=== PATIENT | female | born 1990 | race Two or more races ===

== ENCOUNTER 2024-07-25 03:35 | Inpatient (IN) | payer MEDICAID, SELFPAY ==
[2024-07-25 21:20] VITALS: BP 120/87; PULSE 88; RESP 16; RESP 99; TEMP 36.8
[2024-07-25 21:24] VITALS: BMI 27.4
[2024-07-25 21:25] VITALS: TEMP 36.8
[2024-07-25 22:02] LABS: ROM Kit Lot # 57809118; ROM Swab Mixed By: CARMP2; Rupture of Fetal Membranes Positive (Negative); Swb Mxed in Solvent 1 min? Yes
--- NOTE | 2024-07-25 22:10 | ESHP_ITS ---
Documentation for date of: 07/25/24 OB Labor/Induct. HPI History of Present Illness History of present illness: 34 yo at 36+0 by stated MALATHI consistent with 13 wk US (presents with reports) who presents with LOF and contractions. complicated by 1) History of LTCS, no complications 2) History of abdominoplasty 3) Late transfer of care in [place] (but received full PNC) Patient states she has been feeling leaking of fluid and contractions. No VB, normal movement. She was scheduled to transfer her PNC but has not had her first visit. She presents with records from [place], notable a first trimester US and also a 2TM anatomy US. Per patient's report, no anomalies or concerns. OB HX: SAB x1 CS x1 at term LTCS [employer] hx: hx of HSC polypectomy Med HX: n/a Meds: PNV Surgical Hx: Cs, abdominoplasty Allergies: NKDA Social history: partner in [place] with her. History of Present Adequate Care: Yes Labs Narrative: Patient reports Rh positive All PNL will be drawn stat on admission Review of Systems Review of Systems Narrative Review of Systems: Negative ROS except noted above Past Medical History Surgical History OTHER SURGICAL HX: HSC polypectomy, LTCS, abdominoplasty Meds Home Medications and Allergies Home Medications ?Medication ?Instructions ?Recorded ?Confirmed ?Type No Known Home Medications 07/25/24 07/25/24 History Allergies Allergy/AdvReac Type Severity Reaction Status Date / Time No Known Allergies Allergy Verified 07/25/24 21:24 OB Exam Physical Exam Vital signs: Temp Pulse Resp BP 98.2 F 88 16 120/87 H 07/25/24 21:25 07/25/24 21:20 07/25/24 21:20 07/25/24 21:20 Narrative: GEN: NAD RESP: normal work of breathing ABD: Gravid, non tender EXT: no unilateral swelling SVE: 1-2cm (changing with exam), 100% effaced, bag with parts (not cephalic) Amnisure: positive BSUS: Footling/complete breech with cord seen at the level of the lower extremities, normal DVP FHT: Reactive, no decels [place]: Irregular OB Assessment & Plan Assessment and Plan (1) labor in third trimester: Status: Acute (2) premature rupture of membranes: Status: Acute (3) History of section: Status: Acute (4) History of abdominoplasty: Status: Acute Additional Plan Additional Plan Comment: 34 yo at 36+0 who presented with PPROM and labor with history of LTCS, breech presentation. Discussed with patient plan for urgent RLTCS in the setting of breech, PPROM and PTL. She is actively in labor with changing of her cervix. I am also concerned for risk of cord prolapse given the footling presentation and ruptured of membranes and labor. Given the progression PTL, I did not offer her late ALPS steroids. - Plan for RLTCS, consents signed, consented for blood transfusion as needed. Anesthesia and L&D nursing staff made aware. - All labs were obtained including hep B and HIV - Abx for GBS unknown and status - Patient understands and amenable to the plan, all questions answered Venecia Parsons MD (1) labor in third trimester Qualifiers: labor delivery status: without delivery Qualified Code(s): O60.03 - labor without delivery, third trimester (2) premature rupture of membranes Qualifiers: PROM onset of labor timing: onset of labor within 24 hours of rupture Qualified Code(s): O42.019 - premature rupture of membranes, onset of labor within 24 hours of rupture, unspecified trimester
--- NOTE | 2024-07-25 22:26 | PC.NURSE ---
2215- called dr. vizcaino regarding patient gestation 36 weeks, rupture, breech. schedule for 2299. Asked md if he wanted to be present for delivery, md states no. take to NICU as observation, urine drug tox, ro score, and check blood sugar at 30 min, 1 hr, 2 hr, 4 hr, 6 hr. Call md for any concerns.
[2024-07-25 23:02] VITALS: BMI 27.4
[2024-07-25 23:02] LABS: Basophils % (Auto) 0 % (0-2.5); Eosinophils # (Auto) 0.1 Thou/mm3 (0.0-0.5); Eosinophils % (Auto) 1 % (0-10); Hematocrit 32.9 % (36.0-46.0); Hemoglobin 11.2 g/dL (12.0-16.0); Immature Granulocytes % (Auto) 1 % (0-0); Immature Granulocytes Auto 0.06 Thou/mm3 (0.00-0.00); Lymphocytes # (Auto) 1.9 Thou/mm3 (1.0-4.8); Lymphocytes % (Auto) 21 % (10-50); Mean Corpuscular Hemoglobin 27.2 pg (25.0-35.0); Mean Corpuscular Volume 80 fL (80-100); Monocytes # (Auto) 0.6 Thou/mm3 (0.0-0.8); Monocytes % (Auto) 7 % (0-12); Neutrophils # (Auto) 6.5 Thou/mm3 (1.8-7.7); Neutrophils % (Auto) 71 % (37-80); Nucleated Red Blood Cell % 0 /100 WBC (0); Platelet Count 192 Thou/mm3 (140-440); RDW Standard Deviation 38.5 fL (36.4-46.3); Red Blood Count 4.12 Miln/mm3 (4.00-5.20); White Blood Count 9.3 Thou/mm3 (3.6-11.0)
[2024-07-25] MEDS: ceFAZolin/D5W 2 GM IV 2 GM/100 ML BAG IV (23:10)
[2024-07-25] MEDS: AZITHROMYCIN INJ 500 MG in SODIUM CHLORIDE 0.9% 250 ML 250 ML 250 MG IV (23:28)
[2024-07-25] MEDS: FAMOTIDINE INJ 10 MG/ML VIAL 2 ML 20 MG IV (23:37)
[2024-07-25 23:51] LABS: INR 0.9 (0.9-1.3); Partial Thromboplastin Time 27.9 Seconds (22.0-36.0)
[2024-07-25 23:52] LABS: Fibrinogen 620 mg/dL (175-375)
[2024-07-26] VITALS (16 sets, daily range): BP systolic 90–116; BP diastolic 50–76; PULSE 73–113; RESP 15–18; TEMP 36.1–36.8; O2SAT 96–100
[2024-07-26 00:19] LABS: Alanine Aminotransferase 12 U/L (10-49); Albumin, Serum 4.2 gm/dL (3.5-5.0); Albumin/Globulin Ratio 1.8 (1.2-2.2); Alkaline Phosphatase 114 U/L (46-116); Anion Gap 11 (7-16); Aspartate Amino Transferase 19 U/L (0-34); BUN/Creatinine Ratio 11 Ratio (12-20); Bilirubin,Total 0.8 mg/dL (0.3-1.2); Blood Urea Nitrogen 8 mg/dL (9-23); Calcium 9.1 mg/dL (8.3-10.6); Calcium (Corrected) 9.1 mg/dL (8.5-10.1); Carbon Dioxide 21.9 mMol/L (20.0-31.0); Chloride 106 mMol/L (98-107); Creatinine (Component) 0.7 mg/dL (0.6-1.3); Estimated Creatinine Clearance 104.3 mL/min (>60); Globulin 2.4 gm/dL (2.3-3.5); Glucose 75 mg/dL (74-106); Osmolality,Calculated 274 (275-295); Potassium 3.6 mMol/L (3.4-5.1); Sodium 139 mMol/L (136-145); Total Protein 6.6 gm/dL (5.7-8.2); eGFR > 60 See Note
[2024-07-26 00:29] LABS: Uric Acid 6.1 mg/dL (3.1-7.8)
--- NOTE | 2024-07-26 00:55 | ESOP_ITS ---
Operative Note - ADULT MANAGER Procedure Date of procedure: 07/26/24 Procedure Performed: Repeat lower transverse section Indication: premature rupture of membranes labor Breech presentation History of section History of abdominoplasty Pre-Op diagnosis: premature rupture of membranes labor Breech presentation History of section History of abdominoplasty Post-Op diagnosis: Same Anesthesia type: Spinal Procedure description: After obtaining informed consent, the patient was taken to the operating room. There was reassuring heart rate tracing prior. Spinal anesthesia was administered. A bowers catheter was placed and bilateral sequential compression devices were placed. She was then prepped and draped in the normal sterile fashion in the dorsal supine position with left lateral tilt. A timeout was performed to confirm patient name, date of , procedure and indication. The team was in agreement. Spinal anesthesia was found to be adequate using an Allis clamp. Anceph 2g IV x1 and azithromycin 500mg x1 were given for prophylaxis. A Pfannenstiel skin incision was then made with the scalpel and carried through to the underlying layer of fascia with cautery. The fascia was incised in the midine and the incision was extended laterally with the Burns scissors. The superior and inferior aspects of the fascial incision were then grasped with the Pato clamps, elevated and the underlying rectus muscles were dissected off bluntly and sharply. The peritoneum was entered digitally and the rectus muscles were then in the midline. The peritoneal incision was then extended superiorly and inferiorly with good visualization of the bladder. A uterine window was noted measuring approximately 5cm across. The lower uterine segment was scored in a transverse fashion with the scalpel. The uterus was then entered bluntly and the incision was extended with traction with clear amniotic fluid noted. The 's lower extremities were identified and the infant was delivered using normal breech maneuvers. The nose and mouth were suctioned with bulb suction and cord was clamped x2 and cut. The infant was handed off to the awaiting nursing team. . The placenta was then removed with uterine massage and cord traction. The uterus was exteriorized and cleared of all clot and debris. The uterine incision was repaired with 0-vicryl suture in a running locking fashion. Several figure of eight sutures were placed for hemostasis.The uterine incision was inspected and hemostasis was noted. The uterus was returned to the abdomen. A small 1x2cm serosal tear was noted on the bladder and was repaired with 4-0 monocyrl in a running unlocked fashion. The urine remained clear throughout the procedure. The gutters were cleared of all clot. The rectus muscles were inspected and noted to be hemostatic. The fascia was reapproximated with 0-Vicryl suture in a running fashion. The subcutaneous tissue was then irrigated. Stefano's fascia was reapproximated using 3-0 plaingut suture in a running fashion. The skin was closed using 4-0 monocryl suture in running subcuticular fashion. The incision was cleaned with a wet lap and dried with a dry lap. Bandage was applied over the incision. The vagina was cleared of all blood clots without active bleeding noted. Fundus was firm at the umbilicus. Sponge, lap and needle counts were correct x2. The procedure was without complications and the patient tolerated the procedure well. She was taken to recover further on Labor and Delivery, in stable condition. The procedure was greatly assisted (retraction and assistance with delivery of the baby as well as skin suturing) by the TESHA Flowers. Specimen: other Estimated blood loss (ml): 700 Findings: Footling breech with apgars 8/9, weight 2685g. Uterus, fallopian tubes and ovaries overall normal in appearance. Urine clear yellow at end of procedure. Complications: none Surgical staff Operation Date: 07/25/24 23:15 <No data on this case meets the specified criteria> Diagnosis Discharge Diagnosis (1) History of abdominoplasty: Status: Acute (2) History of section: Status: Acute (3) premature rupture of membranes: Status: Acute (4) labor in third trimester: Status: Acute Problem List Completed Was Problem List Reviewed/Reconciled?: Yes (3) premature rupture of membranes Qualifiers: PROM onset of labor timing: onset of labor within 24 hours of rupture Qualified Code(s): O42.019 - premature rupture of membranes, onset of labor within 24 hours of rupture, unspecified trimester (4) labor in third trimester Qualifiers: labor delivery status: without delivery Qualified Code(s): O60.03 - labor without delivery, third trimester
[2024-07-26 01:00] LABS: Syphilis Nonreactive (Nonreactive)
--- NOTE | 2024-07-26 01:05 | PD.LDDELS ---
Data (Tao) Data Hx Section: Yes
[2024-07-26] MEDS: OXYTOCIN in NS 20 units 20 UNIT/1,000 ML BAG 125 UNIT IV ×2 (03:00→09:17)
[2024-07-26 03:06] LABS: HIV (1&2) Antibody Rapid Non-Reactive
[2024-07-26 04:57] LABS: Amphetamine/Metham Scrn,Ur OB Negative (Negative); Benzoylecgonine Screen, Ur OB Negative (Negative); Opiate Screen,Urine OB Negative (Negative); THC Screen,Urine OB Negative (Negative)
--- NOTE | 2024-07-26 09:14 | PD.LDPPPRG ---
Subjective Subjective Interval history: POD0 from urgent RLTCS at 36+0 for PPROM, PTL, breech presentation. Patient doing well no issues this AM. Baby at beside. Pain well controlled, bleeding within normal limits. bowers in place has not passed gas Exam Vital Signs Temp Pulse Resp BP Pulse Ox O2 Del Method 97.0 F 113 H 18 102/63 97 Room Air 07/26/24 08:33 07/26/24 08:33 07/26/24 08:33 07/26/24 08:33 07/26/24 08:33 07/26/24 08:33 Narrative Exam General: NAD RESP: normal work of breathing Abdomen: soft, gravid, non-tender, no rebound or guarding, bandage in place Extremities: no pain with palpation of calves and no unilateral swelling Objective Labs 07/25/24 22:39 07/25/24 22:39 Labs: Laboratory Results - last 24 hr 07/25/24 07/25/24 07/26/24 21:40 22:39 04:15 WBC 9.3 RBC 4.12 Hgb 11.2 L Hct 32.9 L MCV 80 MCH 27.2 MCHC 34.0 RDW Std Deviation 38.5 Plt Count 192 Neut % (Auto) 71 Lymph % (Auto) 21 [place] % (Auto) 7 Eos % (Auto) 1 Baso % (Auto) 0 Neut # (Auto) 6.5 Lymph # (Auto) 1.9 [place] # (Auto) 0.6 Eos # (Auto) 0.1 Baso # (Auto) 0.0 Immature Gran # (Auto) 0.06 H Absolute Nucleated RBC 0.00 Immature Gran % 1 H Nucleated RBC % 0 PT 10.0 INR 0.9 APTT 27.9 Fibrinogen 620 H* Sodium 139 Potassium 3.6 Chloride 106 Carbon Dioxide 21.9 Anion Gap 11 BUN 8 L Creatinine 0.7 Estim Creat Clear Calc 104.3 eGFR > 60 BUN/Creatinine Ratio 11 L Glucose 75 Calculated Osmolality 274 L Uric Acid 6.1 Calcium 9.1 Corrected Calcium 9.1 Total Bilirubin 0.8 AST 19 ALT 12 Alkaline Phosphatase 114 Total Protein 6.6 Albumin 4.2 Globulin 2.4 Albumin/Globulin Ratio 1.8 Membrane Rupture Positive A Urine Opiates Screen Negative U Amphetamin/Meth Scrn Negative U Cocaine Metab Screen Negative U Marijuana (THC) Screen Negative Syphilis Serology Nonreactive HIV 1&2 Antibody Rapid Non-Reactive Blood Type A Positive Antibody Screen NEGATIVE Blood Bank Wristband ID Yes Assessment & Plan Problem List (1) History of abdominoplasty: Status: Acute (2) History of section: Status: Acute (3) premature rupture of membranes: Status: Acute (4) labor in third trimester: Status: Acute Plan Comment Plan Comment: -Continue routine /post-op care -HDS Hgb 11.2 -> 700cc EBL -> f/u AM CBC. HR 113 this AM, but otherwise good UOP, BP. Continue to monitor VS today -Regular diet -Pain control with motrin and norco -Encourage ambulation and use of IS Time Spent With Patient Time: Total time spent is greater than 50% in coordination of care (as documented) at patient's floor/unit and/or counseling patient:
[2024-07-26 10:23] LABS: Basophils % (Auto) 0 % (0-2.5); Eosinophils # (Auto) 0.1 Thou/mm3 (0.0-0.5); Eosinophils % (Auto) 1 % (0-10); Hematocrit 31.5 % (36.0-46.0); Hemoglobin 10.8 g/dL (12.0-16.0); Immature Granulocytes % (Auto) 0 % (0-0); Immature Granulocytes Auto 0.04 Thou/mm3 (0.00-0.00); Lymphocytes % (Auto) 19 % (10-50); Mean Corpuscular HGB Conc 34.3 g/dl (31.0-37.0); Mean Corpuscular Hemoglobin 27.2 pg (25.0-35.0); Mean Corpuscular Volume 79 fL (80-100); Monocytes # (Auto) 0.5 Thou/mm3 (0.0-0.8); Monocytes % (Auto) 5 % (0-12); Neutrophils % (Auto) 75 % (37-80); Nucleated Red Blood Cell % 0 /100 WBC (0); Platelet Count 153 Thou/mm3 (140-440); RDW Standard Deviation 37.9 fL (36.4-46.3); Red Blood Count 3.97 Miln/mm3 (4.00-5.20); White Blood Count 10.6 Thou/mm3 (3.6-11.0)
[2024-07-26 11:19] LABS: Chlamydia trachomatis PCR Negative (Not Detect); Neisseria Gonorrhoeae DNA PCR Negative (Not Detect); Trichomonas Negative (Negative)
[2024-07-26] MEDS: KETOROLAC INJ 30 MG/ML VIAL IVP (14:48)
[2024-07-26] MEDS: SIMETHICONE 80 MG CHEW PO ×2 (14:48→20:12)
--- NOTE | 2024-07-26 19:38 | OBDSUM_ITS ---
Data (Tao) Data : 3 Para: 1 Term: 1 : 0 : 1 Delivery Data (Tao) Labor Data ROM Date: 07/25/24 ROM Time: 20:00 Rupture Type: SROM Amniotic Fluid: Clear Delivery Data Labor Onset Stage 1 Date: 07/25/24 Labor Onset Stage 1 Time: 23:41 Labor Onset Stage 2 Date: 07/25/24 Labor Onset Stage 2 Time: 00:01 Delivery Date: 07/26/24 Delivery Time: 00:13 Placenta Delivery Date: 07/26/24 Placenta Delivery Time: 00:15 Delivered by: Venecia Parsons Delivery nurse: Mallory Payan Other staff at delivery: AKI Other staff at delivery: Nurse Other staff at delivery: Other staff at delivery: Candace Geller Other staff at delivery: Nathalie Hernandez Other staff at delivery: Carole Delivery Method Delivery: Delivery Type: Repeat Anesthesia Type Primary Anesthesia: Spinal EBL Estimated blood loss (ml): 700 [employer] Data (Tao) Data Gender: Male Weight Grams: 3050 1 Minute Total: 8 5 Minute Total: 9
[2024-07-26] MEDS: IBUPROFEN TAB 400 MG TABLET 800 MG PO (20:11)
[2024-07-27 00:47] VITALS: BP 106/66; PULSE 82; RESP 18; RESP 99; TEMP 36.8; O2SAT 99
[2024-07-27] MEDS: HYDROcodone/APAP 5/325 TABLET 1 TAB PO (01:37)
[2024-07-27] MEDS: Milk Of Magnesia Susp 30 ML UDC PO (01:38)
[2024-07-27] MEDS: SIMETHICONE 80 MG CHEW PO (01:38)
[2024-07-27 06:09] LABS: Basophils % (Auto) 0 % (0-2.5); Eosinophils # (Auto) 0.1 Thou/mm3 (0.0-0.5); Eosinophils % (Auto) 1 % (0-10); Hematocrit 34.7 % (36.0-46.0); Hemoglobin 11.7 g/dL (12.0-16.0); Immature Granulocytes % (Auto) 1 % (0-0); Immature Granulocytes Auto 0.06 Thou/mm3 (0.00-0.00); Lymphocytes # (Auto) 2.5 Thou/mm3 (1.0-4.8); Lymphocytes % (Auto) 19 % (10-50); Mean Corpuscular HGB Conc 33.7 g/dl (31.0-37.0); Mean Corpuscular Hemoglobin 27.4 pg (25.0-35.0); Mean Corpuscular Volume 81 fL (80-100); Monocytes # (Auto) 0.6 Thou/mm3 (0.0-0.8); Monocytes % (Auto) 5 % (0-12); Neutrophils # (Auto) 9.4 Thou/mm3 (1.8-7.7); Neutrophils % (Auto) 74 % (37-80); Nucleated Red Blood Cell % 0 /100 WBC (0); Platelet Count 194 Thou/mm3 (140-440); RDW Standard Deviation 39.8 fL (36.4-46.3); Red Blood Count 4.27 Miln/mm3 (4.00-5.20); White Blood Count 12.7 Thou/mm3 (3.6-11.0)
--- NOTE | 2024-07-27 06:26 | XR_ITS ---
Examination: Abdomen AP single view Technique: AP portable supine abdomen, single view Exam date and time: July 27, 2024 at 0636 hrs. Indications: Distended abdomen post Findings: Significant colonic ileus Significant stool in the right colon No free air No small bowel dilatation The osseous structures are intact Impression: Significant colonic ileus
--- NOTE | 2024-07-27 06:30 | PC.NURSE ---
@8549 Dr. Parsons requested an abdominal x-ray done on pt d/t distention of abdomen.
--- NOTE | 2024-07-27 06:55 | PD.LDPPPRG ---
Subjective Subjective Interval history: 34 yo now s/p RLTCS (07/26/2024) at 36+0 for PPROM, PTL, breech presentation. EBL 700cc. POD1 Patient doing well no issues . Baby at beside. . Pain well controlled, bleeding within normal limits. Voiding without issues. No lightheadedness when walking. Passing a little bit of gas but feel distended. No nausea or vomiting. Having some burping. Report mild upper right shoulder pain. Exam Vital Signs Temp Pulse Resp BP Pulse Ox O2 Del Method 98.3 F 82 18 106/66 99 Room Air 07/27/24 00:47 07/27/24 00:47 07/27/24 00:47 07/27/24 00:47 07/27/24 00:47 07/27/24 00:47 Narrative Exam Exam: General: NAD RESP: normal work of breathing Abdomen: soft, gravid, non-tender, moderately distended. No rebound or guarding Incision: clean/dry Extremities: no pain with palpation of calves and no unilateral swelling Objective Labs 07/27/24 04:56 07/25/24 22:39 Labs: Laboratory Results - last 24 hr 07/26/24 07/26/24 07/27/24 04:15 09:20 04:56 WBC 10.6 12.7 H RBC 3.97 L 4.27 Hgb 10.8 L 11.7 L Hct 31.5 L 34.7 L MCV 79 L 81 MCH 27.2 27.4 MCHC 34.3 33.7 RDW Std Deviation 37.9 39.8 Plt Count 153 D 194 D Neut % (Auto) 75 74 Lymph % (Auto) 19 19 [place] % (Auto) 5 5 Eos % (Auto) 1 1 Baso % (Auto) 0 0 Neut # (Auto) 8.0 H 9.4 H Lymph # (Auto) 2.0 2.5 [place] # (Auto) 0.5 0.6 Eos # (Auto) 0.1 0.1 Baso # (Auto) 0.0 0.0 Immature Gran # (Auto) 0.04 H 0.06 H Absolute Nucleated RBC 0.00 0.00 Immature Gran % 0 1 H Nucleated RBC % 0 0 Chlam trachomat DNA PCR Negative N.gonorrhoeae DNA (PCR) Negative Trichomonas DNA Probe Negative Assessment & Plan Problem List (1) History of abdominoplasty: Status: Acute (2) History of section: Status: Acute (3) Delivery by section: Status: Acute Assessment Comment Assessment comment: 34 yo now s/p RLTCS (07/26/2024) at 36+0 for PPROM, PTL, breech presentation. EBL 700cc. Doing well . Vitals wnl, benign exam. Hemodynamically stable with no evidence of infection. Having moderate distension with no signs of acute abdomen. Plan Comment Plan Comment: Plan: -Continue routine /post-op care -Hemodynamically stable Hgb 11.2 -> 700cc EBL -> 10.8 -Abdominal XR for moderate abdominal distension. No s/s of acute abdomen or surgical complications at this time. will continue to monitor symptoms, VS, and f/u XR results -Pain control with motrin and norco -Ferrous sulfate for anemia -Encourage ambulation and use of IS Time Spent With Patient Time: Total time spent is greater than 50% in coordination of care (as documented) at patient's floor/unit and/or counseling patient:
[2024-07-27] MEDS: ONDANSETRON INJ 2 MG/ML INJ 2 ML 4 MG IV (08:40)
[2024-07-27] MEDS: DEXTROSE 5%-LACTATED RINGERS 1,000 ML 125 ML IV ×2 (08:41→16:35)
[2024-07-27 09:30] VITALS: BP 133/92; PULSE 88; RESP 17; TEMP 36.8; O2SAT 99
[2024-07-27 09:44] LABS: Basophils % (Auto) 0 % (0-2.5); Eosinophils # (Auto) 0.1 Thou/mm3 (0.0-0.5); Eosinophils % (Auto) 1 % (0-10); Hemoglobin 11.3 g/dL (12.0-16.0); Immature Granulocytes % (Auto) 1 % (0-0); Immature Granulocytes Auto 0.07 Thou/mm3 (0.00-0.00); Lymphocytes # (Auto) 1.7 Thou/mm3 (1.0-4.8); Lymphocytes % (Auto) 15 % (10-50); Mean Corpuscular HGB Conc 34.2 g/dl (31.0-37.0); Mean Corpuscular Hemoglobin 27.5 pg (25.0-35.0); Mean Corpuscular Volume 80 fL (80-100); Monocytes # (Auto) 0.6 Thou/mm3 (0.0-0.8); Monocytes % (Auto) 6 % (0-12); Neutrophils # (Auto) 8.4 Thou/mm3 (1.8-7.7); Neutrophils % (Auto) 77 % (37-80); Nucleated Red Blood Cell % 0 /100 WBC (0); Platelet Count 162 Thou/mm3 (140-440); RDW Standard Deviation 39.4 fL (36.4-46.3); Red Blood Count 4.11 Miln/mm3 (4.00-5.20); White Blood Count 10.9 Thou/mm3 (3.6-11.0)
[2024-07-27] MEDS: KETOROLAC INJ 30 MG/ML VIAL IVP ×2 (09:49→16:35)
[2024-07-27 10:04] LABS: Alanine Aminotransferase 18 U/L (10-49); Albumin, Serum 3.8 gm/dL (3.5-5.0); Albumin/Globulin Ratio 1.8 (1.2-2.2); Alkaline Phosphatase 105 U/L (46-116); Anion Gap 11 (7-16); Aspartate Amino Transferase 36 U/L (0-34); BUN/Creatinine Ratio 10 Ratio (12-20); Blood Urea Nitrogen 7 mg/dL (9-23); Calcium 9.2 mg/dL (8.3-10.6); Calcium (Corrected) 9.4 mg/dL (8.5-10.1); Carbon Dioxide 24.2 mMol/L (20.0-31.0); Chloride 105 mMol/L (98-107); Creatinine (Component) 0.7 mg/dL (0.6-1.3); Estimated Creatinine Clearance 104.3 mL/min (>60); Globulin 2.1 gm/dL (2.3-3.5); Glucose 108 mg/dL (74-106); Osmolality,Calculated 278 (275-295); Potassium 3.3 mMol/L (3.4-5.1); Sodium 140 mMol/L (136-145); Total Protein 5.9 gm/dL (5.7-8.2); eGFR > 60 See Note
--- NOTE | 2024-07-27 10:26 | PD.EVENT ---
Documentation for date of: 07/27/24 Event Note Event Note: 34 yo now s/p RLTCS (07/26/2024) at 36+0 for PPROM, PTL, breech presentation. EBL 700cc. POD 1 This AM on rounding, patient noted to be moderately distended so I ordered an abdominal XR and labs XR showed: Findings: Significant colonic ileus Significant stool in the right colon No free air No small bowel dilatation The osseous structures are intact No Leukocytosis, H/H stabe VS wnl On exam now a few hours later, patient appears comfortable and reports passing flatus multiple times since this morning. Her abdomen is less distended and non tender. No rebound or guarding. She states her nausea has improved. Discussed with her the diagnosis of postoperative ileus and plan for conservative medical management. I am not concerned for acute abdomen or surgical complications from the section. - Plan for NPO with IVF - CBC and CMP reviewed and within normal limits - VS wnl, exam reassuring - Continue to monitor, encourage ambulation - Will advance diet status pending more flatus, clinical improvement, and lack of nausea and vomiting. Plan reviewed with patient and bedside RN. Precautions for acute abdomen, worsening SBO, perforation reviewed at length with patient and care team.
[2024-07-27 10:40] LABS: Hepatitis B Surface Antigen Non Reactive (Non React); Rubella, IgG Antibody Reactive (Immune)
[2024-07-27 12:30] VITALS: BP 117/79; PULSE 78; RESP 16; TEMP 36.6
[2024-07-27 16:30] VITALS: BP 106/70; PULSE 83; RESP 17; TEMP 36.8
--- NOTE | 2024-07-27 19:18 | PC.CC ---
SS referral for pt Kirsten Lama, 34 yr old female with delivery at 36 weeks. ASW met with pt at bedside. ASW introduced self and role in pt care. At time of encounter pt is noted to be bonding with male infant at bedside. Pt noted to be alert and oriented to person, place and situation. Pt agreeable to meet with ASW at this time. Pt confirmed delivery. Pt reports receiving care in [place], and arrived in the in May and in [place] in June. Pt reports continuing with care for the duration of her . Pt reports FOB David Winter is part of family dynamic. Couple have a 13 yr old at home. Pt reports having all needs for infants D/c home. Pt reports having strong family and friend support. Pt reports at D/c FOB will transport family to their residence at [address] [place] [address]. Pt is connected with [facility] and [facility]. Per pt she plans to apply for SNAP. Pt denies any involvement with [facility] in the past. Pt denies any hx of DV. Pt denies any hx of substance use.
[2024-07-27 20:00] VITALS: BP 113/77; PULSE 79; RESP 18; TEMP 36.7; O2SAT 99
[2024-07-28 01:00] VITALS: BP 103/70; PULSE 79; RESP 18; TEMP 36.7; O2SAT 99
[2024-07-28] MEDS: DEXTROSE 5%-LACTATED RINGERS 1,000 ML 125 ML IV (02:31)
--- NOTE | 2024-07-28 04:08 | ESPR_ITS ---
Subjective Subjective Interval history: 34 yo now s/p RLTCS (07/26/2024) at 36+0 for PPROM, PTL, breech presentation. EBL 700cc. POD2 Diagnosed with postoperative ileus yesterday, NPO management with improvement and now passing gas and advanced to CLD. Feeling hungry this morning. Patient doing well no issues . Baby at beside. . Pain well controlled, bleeding within normal limits. Voiding without issues. No lightheadedness when walking. Exam Vital Signs Temp Pulse Resp BP Pulse Ox O2 Del Method 98.1 F 79 18 103/70 99 Room Air 07/28/24 01:00 07/28/24 01:00 07/28/24 01:00 07/28/24 01:00 07/28/24 01:00 07/28/24 01:00 Narrative Exam General: NAD RESP: normal work of breathing Abdomen: soft, gravid, non-tender, mildly distended. No rebound or guarding. Incision: clean/dry, small area of firmness above midline part of incision. No erythema or fluid collection. Non tender. Extremities: no pain with palpation of calves and no unilateral swelling Objective Labs 07/27/24 09:12 07/27/24 09:12 Labs: Laboratory Results - last 24 hr 07/25/24 07/27/24 07/27/24 22:39 04:56 09:12 WBC 12.7 H 10.9 RBC 4.27 4.11 Hgb 11.7 L 11.3 L Hct 34.7 L 33.0 L MCV 81 80 MCH 27.4 27.5 MCHC 33.7 34.2 RDW Std Deviation 39.8 39.4 Plt Count 194 D 162 D Neut % (Auto) 74 77 Lymph % (Auto) 19 15 [place] % (Auto) 5 6 Eos % (Auto) 1 1 Baso % (Auto) 0 0 Neut # (Auto) 9.4 H 8.4 H Lymph # (Auto) 2.5 1.7 [place] # (Auto) 0.6 0.6 Eos # (Auto) 0.1 0.1 Baso # (Auto) 0.0 0.0 Immature Gran # (Auto) 0.06 H 0.07 H Absolute Nucleated RBC 0.00 0.00 Immature Gran % 1 H 1 H Nucleated RBC % 0 0 Sodium 140 Potassium 3.3 L Chloride 105 Carbon Dioxide 24.2 Anion Gap 11 BUN 7 L Creatinine 0.7 Estim Creat Clear Calc 104.3 eGFR > 60 BUN/Creatinine Ratio 10 L Glucose 108 H Calculated Osmolality 278 Calcium 9.2 Corrected Calcium 9.4 Total Bilirubin 1.0 AST 36 H ALT 18 Alkaline Phosphatase 105 Total Protein 5.9 Albumin 3.8 Globulin 2.1 L Albumin/Globulin Ratio 1.8 Hep Bs Antigen Non Reactive Rubella IgG Antibody Reactive (Immune) Assessment & Plan Problem List (1) History of abdominoplasty: Status: Acute (2) History of section: Status: Acute (3) Delivery by section: Status: Acute Assessment Comment Assessment comment: 34 yo now s/p RLTCS (07/26/2024) at 36+0 for PPROM, PTL, breech presentation. EBL 700cc. Doing well . Vitals wnl, benign exam. Hemodynamically stable with no evidence of infection. Recovering and improving from postoperative ileus. Plan Comment Plan Comment: Plan: -Continue routine /post-op care -Hemodynamically stable Hgb 11.2 -> 700cc EBL -> 10.8 -> now 11.3 (stable) -Postoperative ileus: diagnosed 07/27 clinically and confirmed on XR. Managed NPO to CLD, Will trial regular diet today. Exam and clinical symptoms improved. -Pain control with motrin and norco -Ferrous sulfate for anemia -Encourage ambulation and use of IS -Discharge pending tolerating PO without nausea or vomiting Time Spent With Patient Time: Total time spent is greater than 50% in coordination of care (as documented) at patient's floor/unit and/or counseling patient:
--- NOTE | 2024-07-28 04:43 | PC.NURSE ---
07/28/2024@ 0230 pt ambulating in unit in stable condition
--- NOTE | 2024-07-28 06:38 | PC.NURSE ---
07/28/2024 @ 0637 [address] Parsons in to see and assess pt. pt concern of incision site, provider advised pt to monitor incision of s/s of infection, Dr. Parsons given new order to advance to regular diet.
[2024-07-28 08:00] VITALS: BP 108/76; PULSE 78; RESP 18; TEMP 36.7; O2SAT 99
[2024-07-28 11:24] VITALS: BP 109/74; PULSE 78; RESP 18; TEMP 36.8; O2SAT 99
--- NOTE | 2024-07-28 13:10 | PD.LDDS ---
DS: Providers Provider Date of admission: 07/26/24 03:40 Primary care physician: Physician No Primary/Family Admitting Provider: Venecia Parsons MD Attending Provider on Admission: Mayank Galvan MD Consults: 07/26/24 01:08 Referral Routine Comment: Attending Provider on DC: Mayank Galvan MD Discharging Provider: Mayank Galvan MD DS: Diagnosis Problem List Completed Was Problem List Reviewed/Reconciled?: Yes Summary/Hosp Course Brief History: 34 yo G3P 2 s/p repeat low-transverse at 36 weeks has been here for 2 days has met all postop milestones including ambulation, passing gas, tolerating p.o. diet. Pain is well-controlled, vitals are stable, patient is stable to be discharged Peripartum Data Procedures: Procedures Operation Date: 07/25/24 23:15 Actual Procedure Side Surgeon p in OB Not Applicable Venecia Parsons MD Status at Discharge Cognitive/behavioral status at discharge: Stable Time Spent with Patient Time attestation: Total time spent providing and/or coordinating discharge services: Exam Vital Signs Temp Pulse Resp BP Pulse Ox O2 Del Method 98.2 F 78 18 109/74 99 Room Air 07/28/24 11:24 07/28/24 11:24 07/28/24 11:24 07/28/24 11:24 07/28/24 11:24 07/28/24 11:24 Constitutional Constitutional: no acute distress Routine HEENT Exam Head: Present normocephalic and atraumatic Eye: Present EOMI and PERRL ENT: Present mucous membranes moist Routine Neck Exam Neck: Present supple and trachea midline Routine Respiratory Exam Respiratory: Present chest non-tender, lungs clear, normal breath sounds and no resp distress Routine Cardiovascular Exam Cardiovascular: Present RRR Routine Abdominal Exam Abdominal: Present soft and normoactive bowel sounds Routine Extremities Exam Extremities: Present full ROM Routine Skin Exam Skin: Present intact, dry and warm Routine Neurological Exam Neurological: Present alert, oriented X3 and CN II-XII intact Routine Psychiatric Exam Psychiatric: Present normal affect and normal thought process Discharge Plan Plan Patient Disposition: HOME (Self Care) Prescriptions/Referrals Prescriptions/Med Rec: New acetaminophen-codeine 300-15 mg tablet 1 tab PO Q12H PRN (Reason: pain) Qty: 14 0RF ibuprofen 800 mg tablet 800 mg PO Q8H PRN (Reason: pain) Qty: 20 0RF Referrals: No Primary/Family,Physician [Primary Care Provider] - Patient/Caregiver Discharge Instructions Education Materials: C Section Dc Print Language: Angolan Stand Alone Forms: Miya Award Info., Patient Portal Info Letter Discharge Order Discharge Orders: Discharge (Routine); Ordered 07/28/24 Ordered By: Mayank Galvan Planned Discharge Date 07/28/24
== END 2024-07-28 16:18 | disposition home or self-care (01) | DRG 540 ==
LOC: S4SX 07-26 03:37 → S4NX 07-26 03:38 → S4SX 07-26 03:39 → S4NX 07-26 03:41
PROVIDERS: Admitting Provider Obstetrics & Gynecology; Visit Provider Student in an Organized Health Care Education/Training Program
PROC: 4A1HXCZ Monitoring of Products of Conception, Cardiac Rate, External Approach (ICD-10-PCS; CPT 59514; principal; 2024-07-25 23:00)
DX: O42.019 Preterm premature rupture of membranes, onset of labor within 24 hours of rupture, unspecified trimester (principal); K56.7 Ileus, unspecified; K91.89 Other postprocedural complications and disorders of digestive system; O34.211 Maternal care for low transverse scar from previous cesarean delivery; Z37.0 Single live birth; Z3A.36 36 weeks gestation of pregnancy; O32.8XX0 Maternal care for other malpresentation of fetus, not applicable or unspecified
CPT/HCPCS: 36415; 59025; 74018; 80053; 80307; 84112; 84550; 85025; 85049; 85384; 85610; 85730; 86703; 86762; 86780; 86850; 86900; 86901; 87340; 87491; 87591; 87661; 94762; A4649; G0378; J0456; J0689; J1100; J1885; J2274; J2371; J2405; J2590; J2765; J3010; J3490; J7050; J7121; A9270; J2270